=== PATIENT | male | born 1965 | race Caucasian/White ===

== ENCOUNTER 2025-07-06 02:47 | Emergency (ER) | payer OTHER, SELFPAY ==
[2025-07-06] VITALS (23 sets, daily range): BP systolic 79–150; BP diastolic 55–96; PULSE 2–90; BMI 34.6
[2025-07-06 06:47] LABS: Hematocrit 43.4 % (39.0-52.0); Hemoglobin 14.3 g/dL (13.0-18.0); Mean Corp Hgb Conc. 32.9 g/dL (33.0-37.0); Mean Corpuscular Volume 90.2 fL (80.0-94.0); Nucleated Red Blood Cells % 0 % (-); Platelet Count 202 10^3/uL (130-400); Red Cell Dist. Width 12.3 % (11.5-14.5)
[2025-07-06] MEDS: TORADOL 15 MG IV (07:07)
[2025-07-06 07:52] LABS: ALT (SGPT) 33 U/L (0-50); AST (SGOT) 29 U/L (17-59); Albumin 3.9 g/dl (3.5-5.0); Alkaline Phosphatase 111 U/L (38-126); Blood Urea Nitrogen 16 mg/dl (9-20); Calcium 9.4 mg/dl (8.4-10.2); Carbon Dioxide 27 mmol/L (22-30); Chloride 107 mmol/L (98-107); Estimated Creatinine Clearance > 125 ml/min; Glucose 142 mg/dl (70-99); Lipase 52 U/L (23-300); Potassium 4.3 mmol/L (3.5-5.1); Sodium 138 mmol/L (135-145); Total Protein 6.4 g/dl (6.3-8.2); eGFR > 60.00
[2025-07-06] MEDS: DECADRON 10 MG IV (08:06)
[2025-07-06] MEDS: BENADRYL 50 MG IV (08:06)
[2025-07-06 08:39] LABS: Urine Character Clear (Clear)
[2025-07-06] MEDS: LASIX 40 MG IV (08:49)
[2025-07-06 08:56] LABS: Urine Red Blood Cell >100 /HPF (0-2); Urine Squamous Cell 0-2 /LPF (Few)
[2025-07-06 08:57] LABS: Urine White Cell 16-20 /HPF (0-5)
--- NOTE | 2025-07-06 09:29 | ED.GENMED ---
History of Present Illness
General
Chief Complaint: Abdominal Pain
Source: patient
Exam Limitations: none
Time Seen by Provider: 07/06/25 06:43
Nursing documentation reviewed up to this point in time: agreed with
History of Present Illness
History of Present Illness:
Patient presents to ED secondary to sudden onset of left-sided abdominal pain, which woke the patient up from sleep around 1 AM. Abdominal pain described as sharp, nonradiating, associated with multiple vomiting episodes. Denies trauma. Denies
back pain. Denies difficulty with urination. Denies fever or chills. Patient reports having had upper respiratory infection recently, treated with Zithromax and prednisone, without any further symptoms. Denies previous history of similar
symptoms. Denies family history of kidney stones or gallstones. Denies previous history abdominal surgery.
Past History
Past History
ED Past Medical History: None
ED Past Surgical History: None
Review of Systems
Review of Systems
Allergies reviewed?: Yes
All Other Systems: ROS reviewed and negative except as documented in HPI and ROS
Constitutional: Reports no symptoms; Denies fever or chills
ABD/GI: Reports abdominal pain, nausea and vomiting
: Reports no symptoms; Denies frequency, flank pain or bleeding
Musculoskeletal: Reports no symptoms
Skin: Reports no symptoms
Neurological: Reports no symptoms
Phy Exam
Physical Exam
Physical Exam:
Physical Exam
General: mild painful distress, not acutely ill. afebrile
Head: nc/at. eomi
Neck: supple. normal range of motion.
Heart: s1/s2 regular rate and rhythm
Lungs: no acute respiratory distress. clear bilaterally
Abdomen: normal bowel sounds. not tender.
Neuro: alert and oriented x 3. no focal neurological deficits
Skin: no rash
Psychiatric: well kept. interactive and cooperative
Extremities: no edema. no calf tenderness.
Course
Orders/Labs/Results
Orders:
Orders
07/06/25 03:15
IV Insert/Care/Rem.- Treatment PRN
07/06/25 06:28
Complete Blood Count/With Diff Urgent
07/06/25 07:03
Ketorolac [Toradol] 15 mg IV NOW STA
07/06/25 07:09
Comprehensive Metabolic Panel Urgent
Lipase Urgent
Urinalysis Reflex To Culture Urgent
Date Specimen was Collected: 07/06/25
Time Specimen was Collected: 03:16
Urine Microscopic Reflex Cult Urgent
Urine Culture Urgent
[place] Source: U
Specimen Description:
Date Specimen was Collected: 07/06/25
Time Specimen was Collected: 03:16
07/06/25 07:59
Dexamethasone Sod Phosphate [Decadron] 10 mg IV NOW STA
Dexamethasone Sod Phosphate [Decadron] 20 mg .ROUTE .STK-MED ONE
Diphenhydramine [Benadryl] 50 mg .ROUTE .STK-MED ONE
Diphenhydramine [Benadryl] 50 mg IV NOW STA
Ipratropium/Albuterol Sulfate [Duoneb] 3 ml .ROUTE .STK-MED ONE
Ipratropium/Albuterol Sulfate [Duoneb] 3 ml INH R NOW STA
CR Chest Portable - 1 View Urgent
Comment:
Reason For Exam: sob
Reason Study Needs to be Portable: Patient Unstable
07/06/25 08:01
Furosemide [Lasix] 100 mg .ROUTE .STK-MED ONE
07/06/25 08:02
Nitroglycerin 100 mg/250 ml [Nitroglycerin Premix] 100 mg in 250 ml .ROUTE .STK-MED
07/06/25 08:43
Furosemide [Lasix] 40 mg IV NOW STA
07/06/25 08:44
CT Abd/pel Without Iv Or Oral Urgent
Comment:
Reason For Exam: left flank pain
Abnormal Lab Results
07/06/25 07/06/25
06:28 07:09
MCHC 32.9 L g/dL
(33.0-37.0)
MPV 11.0 H fL
(7.4-10.4)
Absolute Neuts (auto) 8.2 H 10^3/uL
(1.4-6.5)
Absolute Lymphs (auto) 0.7 L 10^3/uL
(1.2-3.4)
Absolute Eos (auto) 0.8 H 10^3/uL
(0-0.7)
Neutrophils % 79.0 H %
(42.2-75.2)
Lymphocytes % 7.0 L %
(20.5-51.1)
Eosinophils % 7.5 H %
(0-6)
Creatinine 0.5 L mg/dL
(0.7-1.3)
Glucose 142 H mg/dl
(70-99)
Urine Ketones 1+ A
(Negative)
Ur Occult Blood Reflex 4+ A
(Negative)
Leukocyte Esterase Rfl 1+ A
(Negative)
Urine RBC >100 A /HPF
(0-2)
Urine WBC (Reflex) 16-20 A /HPF
(0-5)
Urine Bacteria (Reflex) Moderate A
(Negative)
Urine Albumin (Reflex) 2+ A
(Neg - Trace)
07/06/25 06:28
07/06/25 07:09
Vital Signs
Initial and Last Documented VS:
Initial Vital Signs
Temp Pulse Resp BP Pulse Ox
98.1 F 79 20 121/68 93
07/06/25 03:08 07/06/25 03:08 07/06/25 03:08 07/06/25 03:08 07/06/25 03:08
Last Documented Vital Signs
Temp Pulse Resp BP Pulse Ox
98.1 F 81 28 106/57 93
07/06/25 03:08 07/06/25 13:00 07/06/25 08:20 07/06/25 13:00 07/06/25 13:00
MDM/Problems Addressed
MDM/Problems Addressed:
After initial examination, patient given 15 mg of Toradol for presumed renal colic. Afterwards, per patient and spouse, patient fell asleep. When he woke up shortly afterwards, patient started complaining of significant difficulty with breathing.
When examined, patient found to be in moderate respiratory distress with wheezing, with use of intercostal muscles, findings concerning for potential acute pulmonary edema from the drug reaction. As such, patient given immediately Benadryl 50 mg
IV, 10 mg of Decadron, nitroglycerin infusion, along with BiPAP, as well as nebulizer treatment, with improvement. Chest x-ray suggestive of interstitial edema. Shortly after starting on nitroglycerin infusion, patient noted to become hypotensive.
As such, nitroglycerin discontinued. When blood pressure improved, patient given 40 mg Lasix IV.
During observation, patient reports improvement symptoms. Patient taken off BiPAP and placed on supplemental oxygen via nasal cannula. As patient continued to expressed improvement, after discussion, decision made to ambulate patient off oxygen,
to assess for patient's oxygen status as well as his respiratory symptoms. Patient's pulse ox during ambulation noted to be 89% to 93%. However, fortunately, patient denies any sensation of shortness of breath. At this time, discussed treatment
options, including potential admission to the hospital, but patient would like to be discharged home. Return precautions provided. Advised patient and spouse regarding use of Toradol in the future, in light of what happened in the emergency
department.
CT abdomen pelvis report reviewed and discussed with patient. Patient reports complete resolution of pain after Toradol administration. Patient provided with urine strainer along with short course of pain medication, as well as referral to urology
for outpatient consultation. Advised to return to ED with worsening symptoms, i.e. fever/inability to urinate/worsening pain.
Patient is afebrile, hemodynamically stable, and appears comfortable, at time of discharge, to the care of his .
Critical care statement: A total of 40 minutes of critical care time was provided for this patient. This includes management of unstable vital signs, evaluation of the patient at bedside, reviewing the patient's pertinent medical records, review of
old EKGs and review of pertinent medical records. This time with separate from time utilized to perform the aforementioned documented procedures
*Pulse Oximetry
SaO2: 89
Oxygen Mode of Delivery: BiPAP
Patient hypoxic: yes
*Critical Care Note
Total Time (30-74mins, 75-104mins- exclusive of procedures): 40 min
ED Attending Note
-
Portions of this chart may have been created with voice recognition software.� Occasional wrong word or��sound alike� substitutions may have occurred due to the inherent limitations of voice recognition software.
Discharge Plan
Departure
Patient Disposition: Home (Routine Discharge)
Date of Disposition: 07/06/25
Time of Disposition: 13:31
Patient with high blood pressure during this ER visit?: Yes
Condition: Fair
Discharge Problem:
Renal colic, Dyspnea
Instructions: Renal Colic (DC), Shortness of breath in adults - ED (DC)
Prescriptions:
New
oxycodone-acetaminophen [Percocet] 5-325 mg Tablet
1 tab PO Q6HPRN PRN (Reason: pain) Qty: 12 0RF
ondansetron 4 mg Tablet,Disintegrating
4 mg PO TIDPRN PRN (Reason: nausea/vomiting) Qty: 12 0RF
No Action
fluticasone propion-salmeterol [Advair Diskus] 1 EACH blister with device
1 ea IH DAILY
aspirin 325 MG tablet
650 mg PO DAILY
montelukast 10 MG tablet
10 mg PO DAILY
glucosamine HCl 1,500 MG tablet
3,000 mg PO DAILY
dextromethorphan-guaifenesin 10 ML syrup
10 ml PO Q4HPRN PRN (Reason: cough)
metformin 500 MG tablet
1,000 mg PO BID@0800,1700 Qty: 60 0RF
insulin glargine [Lantus Solostar U-100 Insulin] 300 UNITS/3 ML insulin pen
20 units SC HS Qty: 1 5RF
(DME) pen needle, diabetic [BD Ultra-Fine Ny Pen Needle] 1 EACH needle
1 ea MC DAILY Qty: 50 1RF
(DME) blood sugar diagnostic [Blood Glucose Test] 1 EACH strip
1 ea MC DAILY Qty: 50 1RF
(DME) lancets 1 EACH misc
1 ea MC DAILY Qty: 50 1RF
dextromethorphan-guaifenesin [Mucinex DM] 1 EACH tablet extended release 12 hr
1 ea PO BIDPRN PRN (Reason: cough) Qty: 0 0RF
Referrals:
Chepe Nieves MD [Family Provider, Family Practice]
Mario Alberto Hammer MD [Active, Urology]
Activity Restrictions/Additional Instructions:
As discussed, please follow-up with your primary care physician and referred urologist for further evaluation and treatment. Please consider return to ED with worsening symptoms, ED increased shortness of breath, fever, vomiting, worsening pain, or
inability to urinate. Today, you most likely experienced an allergic reaction to medication administered in ED called Toradol/ketorolac. Please note this medication, to be not administered in the future. Your prescriptions have been sent
electronically to [facility] pharmacy in [place]
Interventions
Interventions:
*General Assessment Last Done: 07/06/25 03:08
*Neglect/Abuse Screening Last Done: 07/06/25 03:08
*ED COVID-19 Vaccine History Last Done: 07/06/25 03:08
*ED Influenza Vaccine History Last Done: 07/06/25 03:08
[facility] Risk Assessment Tool Last Done: 07/06/25 07:04
*Risk Screen - Suicide (C-SSRS) Last Done: 07/06/25 13:43
*Nursing Disposition Last Done: 07/06/25 13:43
TS-Gfmpnt-Fopemicuim Assessment Last Done: 07/06/25 07:04
Discharge Date and Time
Discharge Date/Time: 07/06/25 13:44
Print Language: MALTESE
== END 2025-07-06 13:44 | disposition home or self-care (01) ==
LOC: EMR 02:47
PROVIDERS: Emergency Medicine; EMERGENCY PHYSICIAN Emergency Medicine; FAMILY PHYSICIAN Family Medicine
DX: N13.2 Hydronephrosis with renal and ureteral calculous obstruction (principal); R09.02 Hypoxemia; R03.0 Elevated blood-pressure reading, without diagnosis of hypertension
CPT/HCPCS: 99291; 96374; 96375 ×3; 71045; 74176; 80053; 81003; 81015; 83690; 85025; 87086